=== PATIENT | female | born 1935 | race Caucasian/White ===

== ENCOUNTER 2020-03-11 18:12 | Emergency (ER) | payer OTHER, BC ==
[~2020-03-11] VITALS: Ht 154.9 cm; Wt 67.1 kg
--- NOTE | 2020-03-11 18:15 | NUR ---
PATIENT TO ER #1 AND PLACED ON BLUEPRINT TRACER, SAO2, ABP; STAT EKG AND IV PLACED #22 LEFT HAND
[2020-03-11] MEDS ORDERED: LEVO100T PO (18:25)
[2020-03-11] MEDS ORDERED: NACL 0.9% 1,000 ML IV ONE (18:25)
[2020-03-11] MEDS ORDERED: LOSA25TA18 PO (18:25)
[2020-03-11 18:26] VITALS: BP_SYST 113
[2020-03-11] MEDS ORDERED: ALBUTEROL SULFATE 0.083% 2.5 MG/3 ML VIAL.NEB INH ONE ×2 (18:30→19:30)
[2020-03-11] MEDS ORDERED: IPRATROPIUM BROM 0.5 MG/2.5 ML VIAL.NEB (ATROVENT) INH ONE ×2 (18:30→19:30)
[2020-03-11] MEDS ORDERED: methylPREDNISolone SOD SUCC/PF 62.5 MG/ML VIAL IVP ONE (18:30)
--- NOTE | 2020-03-11 18:37 | NUR ---
PATIENT PRESENTS TO THE ER WITH TWO DAY HX OF DYSPNEA AND WHEEZING; ADMITTED TO [facility] FOR SAME YESTERDAY AND RELEASED TODAY; PATIENT CALLED 911 AFTER BEING HOME SEVERAL HOURS SECONDARY TO WHEEZING AND DYSPNEA; NO TRAUMA, NO OTHER REMARKABLE S/S
--- NOTE | 2020-03-11 18:50 | NUR ---
REASSESSMENT; PATIENT STATES HER BREATHING IS IMPROVED AND WISHES TO GO HOME
--- NOTE | 2020-03-11 19:08 | NUR ---
RECIEVED REPORT AND PT IS ALERT, ABLE TO COMMUNICATE NEEDS. NO ACUTE DISTRESSNOTED. WHEEZING NOTED, CURRENTLY ON A BREATHING TREATMENT.
[2020-03-11 19:13] LABS: BASOPHILS % (AUTO) 0.4 % (0.0-2.0); EOSINOPHILS # (AUTO) 0.3 K/uL (0.0-0.4); EOSINOPHILS % (AUTO) 3.8 % (0.0-4.0); HEMATOCRIT 30.6 % (36-48); HEMOGLOBIN 10.3 g/dL (12.0-16.0); LYMPHOCYTES # (AUTO) 1.5 K/uL (1.0-5.5); LYMPHOCYTES % (AUTO) 18.7 % (20.5-51.5); MEAN CORPUSCULAR HEMOGLOBIN 32 pg (27-31); MEAN CORPUSCULAR HGB CONC 34 % (32-36); MEAN CORPUSCULAR VOLUME 97 fL (79.0-98.0); MONOCYTES # (AUTO) 0.8 K/uL (0.0-1.0); MONOCYTES % (AUTO) 10.3 % (1.7-9.3); NEUTROPHILS # (AUTO) 5.4 K/uL (1.8-7.7); NEUTROPHILS % (AUTO) 66.8 % (40.0-70.0); PLATELET COUNT (AUTO) 241 K/uL (130-430); RED BLOOD CELL COUNT(AUTO) 3.16 MIL/uL (4.2-6.2); RED CELL DISTRIBUTION WIDTH 14.9 % (9.0-15.0); WHITE BLOOD COUNT (AUTO) 8.1 K/uL (4.8-10.8)
[2020-03-11 19:21] LABS: ANION GAP 6 (5-15); CALCIUM 8.1 mg/dL (8.4-11.0); CHLORIDE 103 mmol/L (98-107); CREATININE 0.87 mg/dL (0.55-1.30); GLUCOSE 92 mg/dL (70-99); POTASSIUM 4.6 mmol/L (3.5-5.1); SODIUM SERUM 136 mmol/L (136-145); UREA NITROGEN, BLOOD 25 mg/dL (8-21)
[2020-03-11 19:22] LABS: INR 1.7 (0.8-1.2); PROTHROMBIN TIME 17.3 SECS (9.5-12.5)
[2020-03-11 19:28] LABS: ALANINE AMINOTRANSFERASE 18 U/L (12-78); ALBUMIN 3.2 g/dL (3.4-4.8); AMYLASE 46 U/L (0-100); ASPARTATE AMINOTRANSFERASE 16 U/L (10-37); LIPASE 143 U/L (73-393); TOTAL BILIRUBIN 0.3 mg/dL (0.0-1.0)
[2020-03-11 20:44] VITALS: BP_SYST 130
--- NOTE | 2020-03-11 20:53 | NUR ---
Patient given written and verbal discharge instructions and verbalizes understanding. ER MD Sinha discussed with patient the results and treatment provided. Patient in stable condition. ID arm band removed. IV catheter removed intact and dressing applied, no active bleeding. Rx of albuterol inhaler given. Patient educated on pain management and to follow up with PMD. Pain Scale . Opportunity for questions provided and answered. Medication side effect fact sheet provided.
== END 2020-03-11 20:44 | disposition home or self-care (01) ==
LOC: SED 18:12
DX: J44.1 Chronic obstructive pulmonary disease with (acute) exacerbation (principal); I48.91 Unspecified atrial fibrillation; E78.5 Hyperlipidemia, unspecified; I10 Essential (primary) hypertension; E07.9 Disorder of thyroid, unspecified
CPT/HCPCS: 36415; 36600; 71045; 80053; 82150; 82550; 82803; 83605; 83690; 84484; 85025; 85610; 85730; 87040; 93005; 96374; 99285; J2930; J7613